=== PATIENT | female | born 1990 | race Hispanic/Latino ===

== ENCOUNTER 2021-10-13 23:01 | Emergency (ER) | payer SELFPAY ==
[2021-10-14] MEDS ORDERED: Acetaminophen 500 MG TAB ONE (00:06)
[2021-10-14] MEDS ORDERED: Boostrix 0.5 ML (Tdap) VIAL ONE (00:06)
== END 2021-10-14 00:51 | disposition home or self-care (01) ==
LOC: ERS 23:01
DX: S01.81XA Laceration without foreign body of other part of head, initial encounter (principal); F17.290 Nicotine dependence, other tobacco product, uncomplicated; Y04.2XXA Assault by strike against or bumped into by another person, initial encounter
CPT/HCPCS: 12011; 90471; 90715